=== PATIENT | male | born 2005 | race African-American/Black ===

== ENCOUNTER 2025-05-01 13:12 | Emergency (ER) | payer OTHER ==
[~2025-05-01] VITALS: Ht 175.3 cm; Wt 127.4 kg
[2025-05-01] MEDS: LIDOCAINE 1% MDV 20 ML VIAL IM ONE (17:33)
[2025-05-01] MEDS: TETANUS/DIPHTH/ACEL. PERTUSSIS 0.5 ML SYR IM.IMMUN ONE (17:34)
[2025-05-01] MEDS: NEOSPORIN TOP OINT 15 GM TOP ONE (19:00)
[2025-05-01 19:11] VITALS: BP 148/98; TEMP 97.9; O2SAT 100
== END 2025-05-01 19:12 | disposition home or self-care (01) ==
LOC: M ED 13:12
DX: S61.212A Laceration without foreign body of right middle finger without damage to nail, initial encounter (principal); W26.8XXA Contact with other sharp object(s), not elsewhere classified, initial encounter; Y92.89 Other specified places as the place of occurrence of the external cause; Y93.89 Activity, other specified; Y99.1 Military activity; Z23 Encounter for immunization